=== PATIENT | male | born 1985 | race Caucasian/White ===

== ENCOUNTER → 2022-11-04 11:09 | Outpatient (BNVA) | payer BC, SELFPAY | PROVIDERS: PCP Nurse Practitioner Family; Visit Provider Nurse Practitioner Family ==

== ENCOUNTER 2023-01-06 12:07 | Day surgery (SDC) | payer BC, SELFPAY ==
[2023-01-02 09:24] VITALS: BMI 33.9
[2023-01-06] VITALS (7 sets, daily range): BP systolic 117–146; BP diastolic 59–97; PULSE 71–78; RESP 12–18; TEMP 36.1–36.3; O2SAT 95–98
--- NOTE | 2023-01-06 13:04 | PC.NURSE ---
report given to amy jang rn at this time.
[2023-01-06] MEDS: Lactated Ringers 1,000 ML 100 ML IVCONT (13:38)
--- NOTE | 2023-01-06 13:56 | P.CONAN_ITS ---
[facility] Active Problems Active Problems: All Active Problems (Updated 01/02/23 @ 09:21 by Tamiko Covington RN) Uncircumcised male (Acute) Foreign body (FB) in soft tissue (Acute) Balanitis (Acute) Past Medical History Medical History (Updated 01/02/23 @ 09:21 by Tamiko Covington RN) No pertinent past medical history Family History Family History Mother No problems noted. Father Asthma Family history of problems with anesthesia: No Surgical History Surgical History S/P tendon repair History of Problems with Anesthesia: No Social History Social History Housing: Apartment Alcohol intake: current Alcohol intake frequency: a few times a month Patient Tobacco Use Status: Never used Tobacco Tobacco use type: Cigarette e-Cigarette/Vaping Use: Never Used Are you DNR?: No Advance Directives: No Advance Directives Information Provided: Yes Nutrition Risks: No Nutritional Risk service: No Current occupational status: employed (Currently out. ) Meds Allergies Allergy/AdvReac Type Severity Reaction Status Date / Time No Known Allergies Allergy Verified 11/04/22 13:02 Active Medications: Current Medications Lactated Ringer's (Lr) 1,000 mls @ 100 mls/hr IVCONT .Q10H CHELSIE Last Admin: 01/06/23 13:38 Dose: 100 mls/hr Home Medications Medication Instructions Recorded Confirmed Last Taken Type gabapentin 300 mg capsule 300 mg PO DAILY 10/15/22 01/02/23 Unknown History Exam Exam Date and Time: January 06, 2023 1356 Height,Weight and Vital Signs: Height 6 ft 2 in Weight 119.748 kg Last Vital Signs Temp 97.4 F 01/06/23 13:31 Pulse 71 01/06/23 13:31 Resp 18 01/06/23 13:31 BP 127/84 01/06/23 13:31 Pulse Ox 98 01/06/23 13:31 O2 Del Method Room Air 01/06/23 13:31 Airway Mallampati Class: II TM Dist: >3cm Neck ROM: Full Assessment and Plan Assessment Anesthesia Assessment: Anesthesia Plan Discussed and Chart Reviewed Final Anesthetic Review Family History of Problems with Anesthesia: No History of Problems with Anesthesia: No NPO: Yes ASA Class: II Final Preanesthetic Review: No Changes in Pt Med Stat, Meds/Allgs Chart Reviewed, Consent Obtained/Reviewed and Anes Risks/Benef Reviewed Patient Risk: Low Procedure Risk: Low Anesthetic Plan Anesthetic Plan: GA Disposition: Standard PACU
--- NOTE | 2023-01-06 14:52 | MHC.SHP ---
Pre-Procedural Eval Section A Date of Service: 01/06/23 The patient is an INPATIENT: No The History & Physical has been completed within 30 days and I have reviewed it.: Yes Section B Chief Complaint: Residual foreign body in soft tissue,Balanitis Details of Present Illness: plan for circumcision with removal of foreign body History of Previous Operations: No relevant previous surgery Allergies: Allergies Allergy/AdvReac Type Severity Reaction Status Date / Time No Known Allergies Allergy Verified 11/04/22 13:02 Review of Systems Sugical H&P ROS: Negative: Constitution, Cardiovascular, Respiratory, Neurological, Psychiatric, Hem-Onc, Allergic/Immunologic, Gastrointestinal, Genitourinary, Musculoskeletal, Integumentary, Endocrine and Eyes/Ears/Nose/Throat Plan Diagnosis/Plan: Unchanged I have reviewed the history and physical and performed a pertinent physical examination on my patient. No changes have occurred unless specified. Time Spent With Patient Time: Total time managing care of this patient today ____ minutes.
--- NOTE | 2023-01-24 12:45 | P.OP_ITS ---
Operative Note Operative Note Date of Service: 01/06/23 Narrative: PreOperative Diagnosis: Balanitis with foreign body in foreskin Post Operative Diagnosis: as above Procedure: Circumcision with foreign body removal Surgeon: Dr Soren Rajput Anesthesia: General Indications for procedure: Recurring balanitis in inability to withdrawal foreskin of penile glans. Risks and benefits including bleeding, scarring, need for revision surgery been discussed. Procedure: After informed consent was verified the patient was brought to the operating mahamed m and placed in a supine position. Anesthesia was administered per protocol. The patient was prepped and draped sterile fashion. Safety pause time-out was performed. Antibiotics have been given. Progress under the skin of foreskin The penis was examined and proximal incision marked that lay just proximal to the resting position of the penile sulcus. This was followed around the circumference of the penis. A penile ring block was performed using 1% lidocaine with no epinephrine. Approximately 8 cc. The proximal incision was developed with sharp blade running circumferentially around the penis. The skin was to give a 1 cm separation between the foreskin in the remaining penile shaft skin. The foreskin was withdrawn and the penile glans exposed. A a distal incision was made approximately 5 mm proximal to the penile sulcus. At the area of the frenulum care was taken to empty the penile frenulum intact. Using clamps the dorsal skin was elevated. Using Metzenbaum scissors the avascular plane was entered and proximal and distal incision were joined. The bridging skin was elevated and clamped. It was then divided using Bovie. The sleeve of tissue was then removed circumferentially around the penis using cautery in order to minimize bleeding. The shaft was then examined in any bleeding areas were controlled. More local anesthetic was injected into the plane beneath avascular plane to help with postprocedure pain management. The skin edges after they were appropriately examined low reapposed. A 3-0 chromic suture was placed at 12:00 o'clock and 06:00 o'clock positions. Interrupted 3-0 was then placed the 09:00 o'clock and 3 o'clock position. Each quadrant was then filled with 3 sutures using 4-0 chromic. At the completion of the procedure there was adequate hemostasis. The incision was washed and dried. Antibiotic cream was applied to the incision. A Mandy wrap was applied followed by a Coban dressing. Xeroform gauze had been used to cover antibiotic ointment. He tolerated the procedure well and was extubated in the room and transferred in stable condition to the recovery area. Progress was cleaned and given to patient. Pathology: Foreskin Drains: none
== END 2023-01-06 17:31 | disposition home or self-care (01) ==
PROVIDERS: PCP Internal Medicine; Visit Provider Urology
PROC: (CPT 54161; principal; 2023-01-06 14:20)
DX: N48.1 Balanitis (principal); M79.5 Residual foreign body in soft tissue
CPT/HCPCS: 54161; 88304; J0690; J1100; J1885; J2250; J2405; J2795; J3010

== ENCOUNTER → 2023-01-06 12:07 | Outpatient (BNV) | payer SELFPAY | PROVIDERS: PCP Internal Medicine; Visit Provider Urology | DX: N48.1 Balanitis (principal) | CPT/HCPCS: 54161 ==

== ENCOUNTER 2023-02-14 13:04 | Outpatient (AMB) | payer BC, SELFPAY ==
--- NOTE | 2023-02-14 13:17 | MHC.OFFVIS ---
Intake Intake Visit Reasons: circum/foreign removal Intake Note: Patient presents for follow up s/p circumcision/foreign removal Urology Medications: none Blood Thnner: none Field Technical Assistant Required: Yes Accompanied by: Self / Same As Patient Allergies No Known Allergies Allergy (Verified 02/14/23 13:22) HPI HPI Comments History of Present Illness Details Nicole is a pleasant Luxembourger-speaking male. He is a patient of Dr. Gutierrez. He is seen for the following urologic conditions - balanitis Post circumcision Good result Foreign body that had been located in penile shaft has been removed in well-healed ON LICENSE OF [facility] Medical History No pertinent past medical history Surgical History S/P tendon repair Family History Mother No problems noted. Father Asthma Social History Housing: Apartment Alcohol intake: current Alcohol intake frequency: a few times a month Patient Tobacco Use Status: Never used Tobacco Tobacco use type: Cigarette e-Cigarette/Vaping Use: Never Used service: No Current occupational status: employed (Currently out. ) Review of Systems Const Denies chills and Denies fever(s) Card Reports no additional complaints and Denies syncope Resp Denies cough GI Denies abdominal pain and Denies heartburn Reports as per HPI and Denies change in libido Neuro Denies syncope Psych Denies change in libido Endo Denies change in libido Physical Exam Const General: cooperative, healthy appearing, comfortable and no acute distress Orientation/consciousness: patient oriented x3 HEENT Face and sinus: Yes normal facial exam Mouth: moist mucous membranes Neck Neck: Yes normal visual inspection, Yes full ROM and Yes trachea midline Chest Chest palpation & inspection: normal inspection of the chest Resp Effort & Inspection: normal respiratory effort, able to speak in complete sentences and no respiratory distress GI Inspection: Yes normal to inspection Back/Spine/Pelvis Cervical Spine: normal cervical lordosis Thoracic/Lumbar Spine: thoracic and lumbar spine normal to inspection Skin General skin exam: no rashes or lesions noted Neuro General: patient oriented x3, gait normal, tone normal and moves all extremities Extrem General: Yes normal to inspection and Yes capillary refill normal Assessment & Plan Assessment & Plan (1) Balanitis: Code(s): N48.1 - Balanitis (2) Foreign body (FB) in soft tissue: Code(s): M79.5 - Residual foreign body in soft tissue Plan P.r.n. follow-up Patient Instructions: Imaging studies, laboratory and physical exam results were discussed and reviewed in detail. No major barriers to patient understanding were identified. An opportunity to ask questions regarding the treatment plan was provided. All questions were answered. The patient expressed understanding and agreement with the above treatment plan. The patient is aware they should contact our office by phone for worsening of their current condition or the appearance of new urologic symptoms. Compliance is encouraged with any medications and followup testing that is ordered. It is a privilege to participate in the urologic care of your patient. If you have any questions or concerns regarding treatment for the above conditions, or other urologic issues, please do not hesitate to contact me. The office telephone contact is [phone]. This note is constructed using voice recognition software. While every effort has been made to ensure accuracy marble chip terrazzo worker errors may have been included. Yours sincerely, Dr Soren Rajput MD, [facility] - Urology Providers of Expert, Compassionate Care for the Genitourinary System Coding Level of Care Code Global (71002) Diagnoses Balanitis N48.1 Foreign body (FB) in soft tissue M79.5
== END 2023-02-14 13:51 | disposition home or self-care (01) ==
PROVIDERS: PCP Nurse Practitioner Family; Visit Provider Urology
DX: N48.1 Balanitis (principal); M79.5 Residual foreign body in soft tissue
CPT/HCPCS: 99024

== ENCOUNTER → 2023-02-14 13:04 | Outpatient (BNVA) | payer BC, SELFPAY | PROVIDERS: PCP Nurse Practitioner Family; Visit Provider Urology ==

== ENCOUNTER 2023-10-21 10:08 | Outpatient (AMB) | payer OTHER, SELFPAY ==
--- NOTE | 2023-10-21 10:24 | MHC.PC.OV ---
Vital Signs 10/21/23 10:27 Height 6 ft 2 in Weight 270 lb 8 oz BMI 34.7 BP 110/78 Blood Pressure Location Lt brachial Position Sitting Pulse 77 Pulse Source Pulse Oximeter Pulse Oximetry (%) 94 Oxygen Delivery Method Room Air Intake Visit Reasons: PE Intake Note: Patient is here today for a physical. Zipper Setter Chainstitch Required: Yes Zipper Setter Chainstitch Language: Pasta Press Operator Name: Paresh ([id number]) Information Interpreted: non-clinical & clinical Coin Purse Framer: Not Required per policy Accompanied by: Self / Same As Patient Allergies No Known Allergies Allergy (Verified 10/21/23 13:04) Medication List - Last Reconciled 10/21/23 by Sriram Castellanos MD No Known Home Meds Tobacco use date assessed: 10/21/23 Dental Screening Dental Screen Date: 10/21/23 Did you have a dental visit in the last 12 months?: No Did you have a dental problem in the last 6 months where you did not have access to dental care?: No Was dental information given to patient?: No HPI PE HPI Details 38-year-old male presents to the office requesting an annual physical. PFSH Surgical History History of ankle surgery S/P tendon repair Family History Mother No problems noted. Father Asthma Social History Housing: Apartment Alcohol intake: current Alcohol intake frequency: does not drink Patient Tobacco Use Status: Never used Tobacco Tobacco use type: Cigarette e-Cigarette/Vaping Use: Never Used Second Hand Smoke Exposure: No service: No Current occupational status: employed (Currently out. ) Cognitive needs: No Hearing needs: No Vision needs: No Questionnaire PHQ-9 Over the last 2 weeks, how often have you been bothered by any of the following problems? 1. Little interest or pleasure in doing things: not at all 2. Feeling down, depressed, or hopeless: not at all 3. Trouble falling or staying asleep, or sleeping too much: not at all 4. Feeling tired or having little energy: not at all 5. Poor appetite or overeating: not at all 6. Feeling bad about yourself - or that you are a failure or have let yourself or your family down: not at all 7. Trouble concentrating on things, such as reading the newspaper or watching television: not at all 8. Moving or speaking so slowly that other people could have noticed. Or the opposite - being so fidgety or restless that you have been moving around a lot more than usual: not at all 9. Thoughts that you would be better off or of hurting yourself in some way: not at all Total score: 0 Depression Screening Interpretation: Negative Depression Screening Done: Yes Source: Developed by Drs. Casper Almeida, Fe Bustamante, Wilman Zamora and colleagues, with an educational ruth from [employer] Thrive Questionnaire Date Thrive assessed: 10/21/23 I am a: Patient What is your living situation today?: I have a steady place to live Within the past 12 months, did the food you bought not last and you didn't have the money to get more?: Never true Within the past 12 months, did you worry whether your food would run out before you got money to buy more?: Never true Do you have trouble paying for medicines?: No Do you have trouble getting transportation to medical appointments?: No Do you have trouble paying your heating and electricity bill?: No Do you have trouble taking care of your child, family member or friend?: No Do you have trouble with day-to-day activities such as bathing, preparing meals, shopping, managing finances, etc.?: No Are you currently unemployed and looking for a job?: No Are you interested in more education?: No Currently or been in a relationship where the following occur: no concerns reported THRIVE Score: 0 AUDIT C Alcohol Use Questionnaire (AUDIT-C) 1. How often do you have a drink containing alcohol?: Never 2. How many drinks containing alcohol do you have on a typical day when you are drinking?: 1 or 2 Total Score: 0 KIRAN-7 AMB Questionnaire KIRAN-7 Date KIRAN - 7 assessed: 10/21/23 Feeling nervous, anxious, or on edge: 0 = Not at all Not being able to stop or control worryin = Not at all Worrying too much about different things: 0 = Not at all Trouble relaxin = Not at all Being so restless that it is hard to sit still: 0 = Not at all Becoming easily annoyed or irritable: 0 = Not at all Feeling afraid as if something awful might happen: 0 = Not at all Total KIRAN-7 score (0-4 normal; 5-9 mild; 10-14 moderate; 15-21 severe): 0 Source: Developed by Drs. Casper Almeida, Fe Bustamante, Wilman Zamora and colleagues, with an educational ruth from [employer]. Physical exam (Primary Care) Vital Signs: Last Vital Signs Pulse 77 10/21/23 10:27 BP 110/78 10/21/23 10:27 Pulse Ox 94 10/21/23 10:27 Oxygen Delivery Method Room Air 10/21/23 10:27 Care Plan Goal for BP management: Blood pressure is in range. Continue current medications BMI result Body Mass Index 34.7 BMI Assessment/Plan discussion: High (Patient is very muscular. 1 lb per week weight loss suggested.) BMI High, discussed plan: lifestyle, weight reduction, dietary and physical activity Tobacco/Smoking Status: Tobacco use Status Tobacco use date assessed 10/21/23 10/21/23 10:37 Patient Tobacco Use Status Never used Tobacco 10/21/23 10:35 Tobacco use type Cigarette 10/21/23 10:35 e-Cigarette/Vaping Use Never Used 10/21/23 10:35 PHQ-9: PHQ-9 Score PHQ-9: Total score 0 10/21/23 10:37 Depression Screening Interpretation: Negative Thrive Assessment: Date of Thrive Assessment Date Thrive assessed 10/21/23 10/21/23 10:37 Currently or been in a relationship where the following occur: no concerns reported Const General: cooperative and healthy appearing Nutritional Appearance: well nourished Orientation/consciousness: patient oriented x3 Limitations: no limitations HENMT Head: Yes normal to inspection Eyes General: appearance normal, both eyes and all related structures Neck Neck: Yes normal visual inspection Chest Chest palpation & inspection: normal palpation of entire chest wall Resp Effort & Inspection: normal respiratory effort Neuro General: patient oriented x3 Assessment and Plan Assessment & Plan (1) Annual physical exam: Code(s): Z00.00 - Encounter for general adult medical examination without abnormal findings Plan: Blood work ordered. Will call with results of the blood work. Orders: Orders Complete Blood Count no Diff Today E78.5 - Hyperlipidemia, unspecified Basic Metabolic Panel Today E78.5 - Hyperlipidemia, unspecified Liver Panel Today E78.5 - Hyperlipidemia, unspecified Lipid Panel Today E78.5 - Hyperlipidemia, unspecified Thyroid Stimulating Hormone Today E78.5 - Hyperlipidemia, unspecified UA and rflx microscopic Today E78.5 - Hyperlipidemia, unspecified Coding Level of Care Code Est Pt Prev Care 40-64y([id number]) Diagnoses Annual physical exam Z00.00
[2023-10-21 10:27] VITALS: BP 110/78; PULSE 77; O2SAT 94; BMI 34.7
== END 2023-10-21 13:28 | disposition home or self-care (01) ==
PROVIDERS: PCP Nurse Practitioner Family; Visit Provider Internal Medicine
DX: Z00.00 Encounter for general adult medical examination without abnormal findings (principal)
CPT/HCPCS: 99396

== ENCOUNTER 2023-10-21 11:05 | Outpatient (REF) | payer OTHER, SELFPAY ==
[2023-10-21 11:49] LABS: Appearance Urine Clear; Color Urine Yellow; Glucose Urine UA Negative (Negative); Leukocyte Esterase Urine Negative (Negative); Nitrite Urine Negative (Negative); PH 6.5 (5.0-9.0); Specific Gravity - Urine 1.025 (1.005-1.025); Urine Blood Negative (Negative); Urine Ketones Trace mg/dL (Negative); Urine Protein Negative (Neg-Trace)
[2023-10-21 11:50] LABS: Hematocrit 46.8 % (42.0-52.0); Mean Corpuscular HGB Conc 34.2 g/dl (31.0-36.0); Mean Corpuscular Hemoglobin 30.4 pg (27.0-33.0); Platelet Count 260 X10*3/uL (160-400); Red Blood Count 5.26 X10*6/uL (4.60-5.80); White Blood Count 6.6 X10*3/uL (4.8-10.8)
[2023-10-21 12:48] LABS: Alanine Aminotransferase 32 U/L (0-40); Albumin Level 4.2 g/dL (3.5-5.0); Alkaline Phosphatase 71 U/L (39-117); Anion Gap 15 (12-20); Aspartate Amino Transferase 19 U/L (5-37); Bilirubin Direct 0.2 mg/dL (0.0-0.5); Bilirubin Total 0.7 mg/dL (0.0-1.0); Blood Urea Nitrogen 13 mg/dL (9-16); Calcium 9.7 mg/dL (8.4-10.2); Carbon Dioxide 23 mmol/L (22-29); Chloride 106 mmol/L (96-108); Cholesterol 194 mg/dL (<200); Estimated Glomerular Filt Rate > 60; Glucose Random 97 mg/dL (60-115); HDL Cholesterol 41 mg/dL (>40); LDL Cholesterol Calculated 135 mg/dL (<100); Sodium 140 mmol/L (135-145); Thyroid Stimulating Hormone 1.52 uIU/mL (0.32-4.0); Total Protein 6.8 g/dL (6.5-8.0); Triglycerides 92 mg/dL (<150)
== END 2023-10-21 11:06 | disposition home or self-care (01) ==
LOC: HO.LAB 11:05
PROVIDERS: PCP Internal Medicine; Visit Provider Internal Medicine
DX: E78.5 Hyperlipidemia, unspecified (principal)
CPT/HCPCS: 36415; 80048; 80061; 80076; 81003; 84443; 85027

== ENCOUNTER 2024-05-28 11:31 | Emergency (ER) | payer OTHER, SELFPAY ==
--- NOTE | ~2024-05-28 | XR_ITS ---
EXAMINATION: XR SHOULDER, LEFT CLINICAL INFORMATION: pain, injury COMPARISON: None available. TECHNIQUE: AP external rotation, Grashey, scapular Y, and axillary views of the left shoulder. FINDINGS: Normal bone mineralization. No fracture, dislocation, or suspicious bone lesion. Glenohumeral joint appears normal. AC joint appears normal. Tiny subacromial spur without narrowing of the subacromial space. Neutral lateral acromion. Remainder the bony and soft tissue structures appear normal. XR/XR shoulder LT min 2V IMPRESSION: No acute findings left shoulder. Electronically signed by: Chavo Daniel MD 05/28/2024 01:30 PM EST
[2024-05-28 11:36] VITALS: BP 136/85; PULSE 77; RESP 18; TEMP 36.6; O2SAT 99; BMI 32.7
--- NOTE | 2024-05-28 11:36 | ED.GENADULT ---
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 clinical biochemical geneticist) Mode of arrival: ambulatory Limitations: language barrier (all interactions with this patient were facilitated with an [facility] clinical biochemical geneticist) History of Present Illness ED Provider: Lila Gunn PA-C HPI narrative: Patient is a 39 year old assigned male at with no reported medical history presenting to the emergency department today with left shoulder pain. Patient states that 2 weeks ago he injured his left shoulder at work moving a heavy object. Patient states that he tried to go to work connection first but they wouldn't see him. Patient denies any dizziness, lightheadedness, abdominal pain, nausea, vomiting, fever, chills, blurry vision, double vision, loss of vision, chest pain, difficulty breathing, shortness of breath, back pain, night sweats, pain with urination, increased urinary frequency, increased urinary urgency, blood in his urine or stool, syncope or a near syncopal episode, bowel incontinence, bladder incontinence, or any other complaints at this time. Onset (ago): week(s) (2) Location: left and upper extremity Relieving factors: none Exacerbating factors: none Associated symptoms: denies other symptoms Treatments prior to arrival: none Related Data Home Medications ?Medication ?Instructions ?Recorded ?Confirmed No Known Home Meds 10/21/23 10/21/23 Allergies Allergy/AdvReac Type Severity Reaction Status Date / Time No Known Allergies Allergy Verified 05/28/24 11:38 Review of Systems Constitutional: Constitutional: Reports no additional constitutional complaints, Denies chills, Denies fever(s) and Denies night sweats Eyes: Eyes: Reports no additional eye complaints, Denies blurry vision, Denies change in vision, Denies diplopia, Denies eye discharge, Denies loss of vision and Denies eye pain ENT: Denies dizziness Cardiovascular: Cardiovascular: Reports no additional cardiovascular complaints, Denies chest pain, Denies lightheadedness, Denies Loss of Consciousness and Denies dyspnea Respiratory: Respiratory: Reports no additional respiratory complaints and Denies dyspnea Gastrointestinal: Gastrointestinal: Reports no additional gastrointestinal complaints, Denies abdominal pain, Denies melena, Denies hematochezia, Denies change in bowel habits and Denies change in stool character Genitourinary: Genitourinary: Reports no additional male genitourinary complaints, Denies hematuria, Denies oliguria, Denies difficulty urinating, Denies dysuria, Denies urinary frequency, Denies urinary hesitancy, Denies urinary incontinence and Denies urinary urgency Musculoskeletal: Musculoskeletal: Reports no additional musculoskeletal complaints, Denies numbness and Denies tingling Comments: left shoulder pain Neurologic: Denies dizziness, Denies loss of vision, Denies numbness and Denies tingling Psychiatric: Psychiatric: Reports no additional psychiatric complaints Endocrine: Endocrine: Reports no additional endocrine complaints Hematologic/Lymphatic: Hematologic/Lymphatic: Reports no additional hematologic/lymphatic complaints Allergic/Immunologic: Allergic/Immunologic: Reports no additional allergic/immunologic complaints PMFSH Past Medical History Attestation statement: The following information was validated with the patient. Source: old records reviewed and nursing notes reviewed Surgical History History of ankle surgery S/P tendon repair Family History Family History Mother No problems noted. Father Asthma Social History Social History Housing: Apartment Alcohol intake: current Alcohol intake frequency: does not drink Patient Tobacco Use Status: Never used Tobacco Tobacco use type: Cigarette e-Cigarette/Vaping Use: Never Used Second Hand Smoke Exposure: No Advance Directives: No Advance Directives Information Provided: Yes Do you have a plan to hurt others: No Plan service: No Current occupational status: employed (Currently out. ) Cognitive needs: No Hearing needs: No Vision needs: No Physical Exam ED Vital Signs: Vital Signs - 24 hr 05/28/24 11:36 05/28/24 14:37 Temperature 98 F 98 F Pulse Rate 77 77 Respiratory Rate 18 18 Blood Pressure 136/85 136/85 Pulse Oximetry 99 99 Oxygen Delivery Method Room Air Room Air BMI result Body Mass Index 32.7 Const General: cooperative, no acute distress, alert and awake Nutritional Appearance: well nourished Orientation/consciousness: patient oriented x3 Limitations: no limitations HENMT Head: Yes normal to inspection and Yes atraumatic Ears: hearing grossly normal bilaterally and external ears normal General nose exam: Normal external nose present, no nasal discharge noted and no epistaxis Face and sinus: Yes normal facial exam, No abrasion and No laceration Mouth: Normal oral and palatal mucosa present, no drooling and no muffled voice Eyes General: appearance normal, both eyes and all related structures Periorbital: periorbital findings normal Eyelids: Yes eyelids normal Conjunctivae: conjunctivae normal Pupils: Equal, round and reactive pupils present EOM: EOMs intact bilaterally Neck Neck: Yes normal visual inspection, Yes full ROM and Yes no lymphadenopathy Chest Chest palpation & inspection: normal inspection of the chest Resp Effort & Inspection: normal respiratory effort and able to speak in complete sentences GI Inspection: Yes normal to inspection Neuro General: patient oriented x3 and moves all extremities Cranial nerves: Yes Equal, round and reactive pupils present Cognition (Neuro): normal cognition Extrem Other: limited ROM of the left shoulder secondary to pain General: Yes normal to inspection and Yes capillary refill normal Psych Appearance: grossly normal Mental Status: mental status grossly normal Affect: normal affect Attitude: cooperative Thought process: Normal thought process present Thought content: Normal thought content present Insight: Good insight present (Psych) Course Course Course Narrative: RME performed by Lila Gunn PA-C. Patient is a 39 year old assigned male at presenting to the emergency department with left shoulder pain. Patient states he was manipulating large concrete slabs and somehow tweaked his left shoulder. Detailed physical exam and review of systems are deferred to the portable sawyer. Imaging ordered. Patient placed back in the waiting room pending room availability and results. Medical Decision Making Medical Decision Making MDM Narrative: Patient is a 39 year old assigned male at with no reported medical history presenting to the emergency department today with left shoulder pain. Patient's physical exam was as noted in the physical exam portion of this note. Patient's left shoulder x-ray showed no acute process. I explained my physical exam findings as well as all test results to the patient. I answered all questions asked by the patient. Patient's clinical presentation is most consistent with a left rotator cuff injury. I stressed the importance of the patient taking his medication as directed (either prescribed or as the over the counter packaging recommends). I stressed the importance of the patient following up with his primary care provider, an orthopedic provider, and work connection. I stressed the importance of the patient returning to the emergency department immediately if his symptoms were to worsen or if he were to develop any dizziness, shortness of breath, difficulty breathing, chest pain, blurry vision, loss of vision, nausea, vomiting, abdominal pain, fever, chills, back pain, or any other complaints. Patient verbalized agreement and understanding with this treatment plan and discharge. Differential Diagnosis Differential Diagnoses: The differential diagnosis associated with the presentation includes Rotator cuff injury Shoulder pain Shoulder injury Admission/Observation Consideration of admission/observation: Escalation of care including admission/observation considered Patient would have been admitted to the hospital had his work up had any findings where hospital admission was appropriate and his clinical presentation warranted hospital admission. Independent Interpretation I performed an independent interpretation of an: Plain X-Ray Interpretation: My interpretation is in agreement with the radiologist's impression of this imaging study. EXAMINATION: XR SHOULDER, LEFT CLINICAL INFORMATION: pain, injury COMPARISON: None available. TECHNIQUE: AP external rotation, Grashey, scapular Y, and axillary views of the left shoulder. FINDINGS: Normal bone mineralization. No fracture, dislocation, or suspicious bone lesion. Glenohumeral joint appears normal. AC joint appears normal. Tiny subacromial spur without narrowing of the subacromial space. Neutral lateral acromion. Remainder the bony and soft tissue structures appear normal. XR/XR shoulder LT min 2V IMPRESSION: No acute findings left shoulder. Electronically signed by: Chavo Daniel MD 05/28/2024 01:30 PM EST Dictated By: Chavo Daniel MD Signed By: Electronically signed by Chavo Daniel MD 05/28/24 5180 Radiology Impression Discussion of test interpretation with radiology: I have reviewed the radiologist's reading. Discharge Plan Discharge Clinical Impression: Rotator cuff injury Patient Disposition: Home, Self-Care Instructions: Rotator Cuff Injury (ED), Rotator Cuff Injury Exercises (DC) Additional Instructions: Follow up with your primary care provider, the orthopedic provider, and work connection. Return to the emergency department immediately if your symptoms worsen or if you develop any dizziness, shortness of breath, difficulty breathing, chest pain, blurry vision, loss of vision, nausea, vomiting, abdominal pain, fever, chills, back pain, or any other complaints. Cameron un seguimiento con pineda m?dico de atenci?n primaria, el traumat?logo y la conexi?n laboral. Vuelva inmediatamente al servicio de urgencias si lillian s?ntomas empeoran o si presenta mareos, falta de aliento, dificultad para respirar, dolor tor?cico, visi?n borrosa, p?rdida de visi?n, n?useas, v?mitos, dolor abdominal, fiebre, escalofr?os, dolor de espalda o cualquier otra molestia. Prescriptions: No Action No Known Home Meds Referrals: [facility] Family Medicine [Provider Group] (Call to establish and follow up with a primary care provider. If you already have a primary care provider, please follow up with them. Llame para establecer y hacer un seguimiento con un proveedor de atenci?n primaria. Si ya tiene un proveedor de atenci?n primaria, cameron un seguimiento con ?l.) [facility] [Provider Group] (Call to establish and follow up with a primary care provider. If you already have a primary care provider, please follow up with them. Llame para establecer y hacer un seguimiento con un proveedor de atenci?n primaria. Si ya tiene un proveedor de atenci?n primaria, cameron un seguimiento con ?l.) [facility] Primary Care,[facility] [Provider Group] (Call to establish and follow up with a primary care provider. If you already have a primary care provider, please follow up with them. Llame para establecer y hacer un seguimiento con un proveedor de atenci?n primaria. Si ya tiene un proveedor de atenci?n primaria, cameron un seguimiento con ?l.) [facility] Orth[facility] Surgeons [Provider Group] (call to establish and follow up with an orthopedic provider. llamar para establecer y hacer un seguimiento con un proveedor de ortopedia.) [facility] [Provider Group] (Call to establish and follow up with the work connection. Llame para establecer y hacer un seguimiento de la conexi?n laboral.) Stand Alone Forms: Work/School Release Interventions: ED Discharge Assessment Last Done: 05/28/24 14:37 Discharge Date/Time: 05/28/24 14:38 Print Language: Greenlandic
[2024-05-28 14:37] VITALS: BP 136/85; PULSE 77; RESP 18; TEMP 36.6; O2SAT 99
== END 2024-05-28 14:38 | disposition home or self-care (01) ==
PROVIDERS: Emergency Provider Emergency Medicine
DX: S46.002A Unspecified injury of muscle(s) and tendon(s) of the rotator cuff of left shoulder, initial encounter (principal); M25.512 Pain in left shoulder; X50.9XXA Other and unspecified overexertion or strenuous movements or postures, initial encounter; Y93.89 Activity, other specified; Y92.89 Other specified places as the place of occurrence of the external cause; Y99.0 Civilian activity done for income or pay
CPT/HCPCS: 73030; 99282; 99283

== ENCOUNTER → 2024-05-28 11:37 | Outpatient (BNV) | payer OTHER, SELFPAY | PROVIDERS: Emergency Provider Emergency Medicine; Visit Provider Radiology Diagnostic Radiology | DX: M25.512 Pain in left shoulder (principal) | CPT/HCPCS: 73030 ==

== ENCOUNTER 2024-06-05 10:00 | Emergency (ER) | payer OTHER, SELFPAY ==
[2024-06-05 10:45] VITALS: BP 145/89; PULSE 80; RESP 16; TEMP 36.6; O2SAT 98; BMI 33.6
--- NOTE | 2024-06-05 11:31 | ED.EXTPRO ---
HPI - Extremity Problem General Chief complaint: Extremity Injury, Upper Stated complaint: l shoulder pain Time Seen by Provider: 06/05/24 10:58 Source: patient and RN notes reviewed Mode of arrival: ambulatory Limitations: no limitations History of Present Illness ED Provider: Mary Anne Dallas PA-C HPI Narrative: This is a 39-year-old male, with no known medical problems, who presents emergency department with complaints of left shoulder pain since May 24. Patient states that while he was at work on the , he lifted a heavy piece of popping and immediately felt pain in his left shoulder. He states that he was seen here on May 28, had an x-ray performed which was normal, and was advised to follow-up with the legal recovery specialist. He has been taking ibuprofen for pain. He states that he called the legal recovery specialist however they are awaiting paperwork from his work prior to setting up the appointment. Patient states that he has had problems with his workman's comp paperwork and therefore it has not been processed. He states that he is unable to sleep secondary to the pain. Denies any new trauma or injury. No chest pain or shortness for breath. Pain worsens with movement. No other complaints or concerns at this time. MD Complaint: extremity pain Pain Consistency: constant Location: left and upper extremity Quality: aching Radiation: none Relieving factors: medication and rest Exacerbating factors: range of motion and palpation Related Data Previous Rx's ?Medication ?Instructions ?Recorded acetaminophen 500 mg tablet 1,000 mg (2 x 500 mg) PO Q8H PRN 06/05/24 (Tylenol Extra Strength) pain #30 tabs ibuprofen 600 mg tablet 600 mg PO Q6H PRN pain #30 tabs 06/05/24 oxycodone 5 mg tablet 5 mg PO Q6H PRN pain #5 tabs 06/05/24 Allergies Allergy/AdvReac Type Severity Reaction Status Date / Time No Known Allergies Allergy Verified 06/05/24 10:46 Review of Systems Review of Systems: Yes all other systems are reviewed and are negative Constitutional: Constitutional: Reports as per HPI [facility] Past Medical History Surgical History History of ankle surgery S/P tendon repair Family History Family History Mother No problems noted. Father Asthma Social History Social History Housing: Apartment Alcohol intake: current Alcohol intake frequency: does not drink Patient Tobacco Use Status: Never used Tobacco Tobacco use type: Cigarette e-Cigarette/Vaping Use: Never Used Second Hand Smoke Exposure: No Advance Directives: No Advance Directives Information Provided: No Do you have a plan to hurt others: No Plan service: No Current occupational status: employed (Currently out. ) Cognitive needs: No Hearing needs: No Vision needs: No Physical Exam Vital Signs: Vital Signs: Last Vital Signs Temp 97.9 F 06/05/24 12:33 Pulse 80 06/05/24 12:33 Resp 16 06/05/24 12:33 BP 145/89 H 06/05/24 12:33 Pulse Ox 98 06/05/24 12:33 O2 Del Method Room Air 06/05/24 12:33 BMI result Body Mass Index 33.6 Const: General: cooperative, comfortable and no acute distress Orientation/consciousness: patient oriented x3 Limitations: no limitations HEENT: Head: Yes normal to inspection, Yes normocephalic and Yes atraumatic Ears: hearing grossly normal bilaterally General nose exam: Normal external nose present Face and sinus: Yes normal facial exam Mouth: Normal oral and palatal mucosa present, oropharynx normal and moist mucous membranes Throat: Yes posterior oropharynx normal Eyes: General: appearance normal, both eyes and all related structures Eyelids: Yes eyelids normal Conjunctivae: conjunctivae normal Sclerae: sclerae normal Pupils: Equal, round and reactive pupils present EOM: EOMs intact bilaterally Neck: Neck: Yes normal visual inspection, Yes full ROM and Yes no lymphadenopathy Lymphatic: no lymphadenopathy noted Chest: Chest palpation & inspection: normal inspection of the chest Resp: Effort & Inspection: normal respiratory effort and able to speak in complete sentences Auscultation: clear to auscultation bilaterally, no crackles, no rales, no rhonchi and no wheezes Cardio: Rate: regular rate Rhythm: regular rhythm Heart sounds: S1 normal heart sound present and S2 normal heart sound present GI: Inspection: Yes normal to inspection Skin: General skin exam: no rashes or lesions noted Trauma: no lacerations or abrasions Wounds: no wounds Neuro: General: patient oriented x3 and moves all extremities Cranial nerves: Yes Equal, round and reactive pupils present Extrem: Other: Left shoulder, with no obvious bony deformity or swelling. He has tenderness palpation along the left bicipital groove, pain with range of motion. Negative drop-arm test, pain with lift-off test. Positive empty can test. Strong radial pulse. No tenderness palpation along the left clavicle. Left arm, with ability to raise arm to about 110? forward, and abduction to about 110?, however with pain elicited. General: Yes normal to inspection Right upper extremity: normal to inspection Left upper extremity: normal to inspection Right lower extremity: normal to inspection Left lower extremity: normal to inspection Medications Administered Discontinued Medications Generic Name Dose Route Start Last Admin Trade Name Freq PRN Reason Stop Dose Admin Ketorolac Tromethamine 30 mg 06/05/24 11:54 06/05/24 12:01 Ketorolac Tromethamine 30 Mg/Ml Vial IM 06/05/24 11:55 30 mg ONCE ONE Administration Medical Decision Making Medical Decision Making MDM Narrative: This is a 39-year-old male, with no known medical problems, who presents emergency department with ongoing left shoulder pain. On arrival, patient mildly hypertensive at 145/89, all other vital signs within normal limits. He is speaking full sentences under no acute distress. Patient with pain especially with range of motion, he does have pain along the bicipital groove, and AC joint region. Concerning for possible rotator cuff like injury. X-ray that was performed on 1226 revealed no acute findings. He has had no new injury since this visit on May 28. Repeat x-rays was deferred. Discussed with patient in the importance of following up with the legal recovery specialist. He states that he has been attempting to do so however has had issues with workman's comp paperwork, and his employer. He has been taking [id number] ibuprofen and Tylenol with minimal relief. He states he is unable to sleep at night. Advised patient to continue taking ibuprofen and Tylenol. We will give him short course of oxycodone, advised only take this for severe pain only. Advised that this is a short-term medication, and can not be refilled from the emergency room. Warned about addiction, adverse side effects from narcotics therefore urged the importance to only take as needed for severe pain only. He understands this. He will follow-up with the legal recovery specialist on Friday. Will medicate with Toradol in the department today, which provided him with some relief. Given strict return precautions. Patient stable for discharge. Differential Diagnosis Differential Diagnoses: The differential diagnosis associated with the presentation includes Rotator cuff injury, tendonitis, fracture, sprain, strain Radiology Impression Discussion of test interpretation with radiology: I have reviewed the radiologist's reading. Radiologist Impression: I reviewed the radiology report from 05/28, revealing no acute findings of the left shoulder. Deferred repeat as patient has had no new injury Discharge Plan Discharge Clinical Impression: Pain in left shoulder Patient Disposition: Home, Self-Care Instructions: Shoulder Pain (ED) Additional Instructions: You were seen in the emergency department due to left shoulder pain. You previously had an x-ray performed at your last ER visit which did not show any bony abnormalities. You have exam findings concerning for possible rotator cuff like injury. It is very important that you follow-up with the legal recovery specialist, call on Friday to make an appointment. Continue taking ibuprofen and or Tylenol as needed for pain and symptoms. If you need more pain relief after taking Tylenol and Motrin, you may take the oxycodone that was prescribed to you. Please take this sparingly, and only use for severe pain only. Please be advised that oxycodone is a strong narcotic pain medication that can become addictive therefore it is very important that you use this sparingly. We can not refill this medication from the emergency department. Please be advised that this can cause drowsiness, do not drink alcohol, or operate any heavy machinery while taking this medication. Rest, ice the left shoulder as this can also provide pain relief. Call to establish and follow up with an orthopedic provider. Llame para establecer y hacer seguimiento con un proveedor de ortopedia. Follow up with your primary care provider. Return to the emergency department immediately?if your symptoms?were to worsen or if you were to develop any shortness of breath, difficulty breathing, chest pain, dizziness, lightheadedness, back pain, abdominal pain, fever, chills, or any other symptoms. Alison?seguimiento?con pineda m?dico de atenci?n primaria. Acuda inmediatamente al servicio de urgencias si lillian s?ntomas empeoran o si presenta falta de aliento, dificultad para respirar, dolor tor?cico, mareos, aturdimiento, dolor de espalda, dolor abdominal, fiebre, escalofr?os o cualquier otro s?ntoma. Prescriptions: New ibuprofen 600 mg tablet 600 mg PO Q6H PRN (Reason: pain) Qty: 30 0RF acetaminophen [Tylenol Extra Strength] 500 mg tablet 1,000 mg PO Q8H PRN (Reason: pain) Qty: 30 0RF oxycodone 5 mg tablet 5 mg PO Q6H PRN (Reason: pain) Qty: 5 0RF Rx Instructions: Partial Fill upon patient request. [place] [facility] [Provider Group] Stand Alone Forms: Work/School Release Interventions: ED Discharge Assessment Last Done: 06/05/24 12:33 Discharge Date/Time: 06/05/24 12:37 Print Language: Indonesian
[2024-06-05] MEDS: Ketorolac Tromethamine 30 MG/ML VIAL IM (12:01)
[2024-06-05 12:33] VITALS: BP 145/89; PULSE 80; RESP 16; TEMP 36.6; O2SAT 98
== END 2024-06-05 12:37 | disposition home or self-care (01) ==
PROVIDERS: Emergency Provider Emergency Medicine
DX: Z04.2 Encounter for examination and observation following work accident (principal); M25.512 Pain in left shoulder
CPT/HCPCS: 96372; 99283; 99284; J1885

== ENCOUNTER 2024-06-15 15:00 | Outpatient (AMB) | payer OTHER, SELFPAY ==
--- NOTE | 2024-06-15 15:07 | A.OFFVIS_ITS ---
Vital Signs 06/15/24 15:14 Height 6 ft 1 in Weight 255 lb BMI 33.6 Handedness Right Intake Visit Reasons: New Pt - Left shoulder injury, 05/24/24 Intake Note: Jacky 39 year old right hand dominant male who presents today as a new patient for a evaluation of his left shoulder injury, 05/24/24. Patient reports he was lifting a heavy piece of paper tubing and heard a popping sound in his shoulder and immediately felt pain. Patient states that his pain is on the lateral aspect of the shoulder and it moves down to his bicep. He mentions that they gave him an injection of tramadol which gave him relief. Machine Load Clerk Services: Machine Load Clerk Present (Curtis ([id number])) Allergies No Known Allergies Allergy (Verified 06/15/24 15:12) HPI HPI New Pt - Left shoulder injury, 05/24/24: Details: Patient is a right-hand dominant 39-year-old male who presents to the office today for evaluation of left shoulder injury that occurred on 05/24/2024. He reports that he was lifting something heavy and heard a popping sensation from the left shoulder. He presented to the emergency department where they gave him an injection for inflammation. The sounds like Toradol. He denies any physical therapy or cortisone injection. [facility] Surgical History History of ankle surgery S/P tendon repair Family History Mother No problems noted. 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 No ecchymosis, erythema, or edema. Full shoulder ROM in all planes. Negative cross-body reach. Negative empty can. Negative drop arm. NVI. Office Procedures AMB Joint Injection/Aspiration Joint Injection/Aspiration Primary Site: left shoulder Prep: site was prepped using aseptic technique, ethochloride spray was applied and injection warnings given Injected: 80 mg of, DepoMedrol, with 8 mL of (2% plain lidocaine) and in the subcromial space Approach Used: posterolateral Procedure: The patient tolerated the procedure well, but had some pain with the injection and there was some relief with the local anesthesia Coding 28225 - Large joint Procedure code (CPT) selection complete Assessment & Plan Assessment & Plan (1) Painful arc syndrome of left shoulder: Code(s): M75.102 - Unspecified rotator cuff tear or rupture of left shoulder, not specified as traumatic Category: Medical Plan Patient is a right-hand dominant 39-year-old male who presents to the office today for evaluation of left shoulder injury that occurred on 05/24/2024. He reports that he was lifting something heavy and heard a popping sensation from the left shoulder. He presented to the emergency department where they gave him an injection for inflammation. The sounds like Toradol. He denies any physical therapy or cortisone injection. The patient was offered a cortisone injection in the left shoulder with 80 mg of DepoMedrol. The patient was explained the risks, benefits, and alternatives to receiving this injection. After receiving consent for the injection, the patient had the procedure done while in the office today. The patient tolerated the procedure well with no complications. I also discussed the role of physical therapy with the patient and he has elected to attend. He will follow up in 6 weeks, if his symptoms do not improve the next step would be to order an MRI. He will follow up in 6 weeks, sooner if needed. X-rays obtained on 05/28/2024 of the left shoulder were reviewed and negative for any acute fracture dislocation. Coding Level of Care Code New Pt Level 3 (25713) Diagnoses Painful arc syndrome of left shoulder M75.102 CPT Codes Coding - 16224 Large joint: 00089 - Large joint ([id number])
[2024-06-15 15:14] VITALS: BMI 33.6
== END 2024-06-15 16:04 | disposition home or self-care (01) ==
PROVIDERS: Visit Provider Physician Assistant
DX: M75.102 Unspecified rotator cuff tear or rupture of left shoulder, not specified as traumatic (principal)
CPT/HCPCS: 20610; 99203

== ENCOUNTER → 2024-06-15 15:00 | Outpatient (BNVA) | payer OTHER, SELFPAY | PROVIDERS: Visit Provider Physician Assistant | DX: M75.102 Unspecified rotator cuff tear or rupture of left shoulder, not specified as traumatic (principal) | CPT/HCPCS: 20610; 99202; J1010; J2003 ==

== ENCOUNTER 2024-07-27 13:10 | Outpatient (AMB) | payer OTHER, SELFPAY ==
--- NOTE | 2024-07-27 13:21 | MHC.OFFVIS ---
Vital Signs 07/27/24 13:31 Height 6 ft 1 in Weight 255 lb BMI 33.6 Intake Visit Reasons: OV - left shoulder injury, 05/24/24 Intake Note: Jacky 39 year old right hand dominant male who presents today for a follow up of his left shoulder injury, 05/24/24. Injection was given on 06/15/24. Patient reports he is doing well, states improvement in his pain ever since torodal injection. He denies any pain or discomfort today. Commissioned Sales Associate Required: Yes Commissioned Sales Associate Services: Commissioned Sales Associate Present Commissioned Sales Associate Name: Noelle ID#[id number], [id number] Allergies No Known Allergies Allergy (Verified 07/27/24 13:31) HPI HPI OV - left shoulder injury, 05/24/24: Details: Mr. Mich Galdamez this is a 39-year-old right-hand dominant male who presents to the office today for routine follow-up status post left shoulder cortisone injection performed on 06/15/2024. His initial date of injury was 05/24/2024 when he was at work lifting a heavy object and heard a popping sensation in the left shoulder. Since the injection he has had complete resolution of symptoms. He would like to return to work full-time regular duty. [facility] Surgical History History of ankle surgery S/P tendon repair Family History Mother No problems noted. 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 No ecchymosis, erythema, or edema. Full shoulder ROM in all planes. Negative cross-body reach. Negative empty can. Negative drop arm. NVI. Assessment & Plan Assessment & Plan (1) Painful arc syndrome of left shoulder: Code(s): M75.102 - Unspecified rotator cuff tear or rupture of left shoulder, not specified as traumatic Category: Medical Plan Mr. Mich Galdamez this is a 39-year-old right-hand dominant male who presents to the office today for routine follow-up status post left shoulder cortisone injection performed on 06/15/2024. His initial date of injury was 05/24/2024 when he was at work lifting a heavy object and heard a popping sensation in the left shoulder. Since the injection he has had complete resolution of symptoms. He would like to return to work full-time regular duty. While in the office today, patient reports that he is doing very well and his symptoms have completely concluded. I have provided him with a return to work note to return full-time regular duty. His follow up with me will be p.r.n., sooner if needed. Coding Level of Care Code Est Pt Level 3 (10400) Diagnoses Painful arc syndrome of left shoulder M75.102
[2024-07-27 13:31] VITALS: BMI 33.6
--- OUTSIDE RECORDS SUMMARY | 2024-07-27 16:07 | XMS_ITS | Data Portability ---
Author Organization MÓNICA Tinsley [employer] [facility], [address] Address [address] [place] [id number] Assessment No assessment recorded. Plan of Treatment Reminders Order Date Submit Date Provider Last Modified By Organization Details Last Modified Time Details Appointments None recorded. Lab None recorded. Referral None recorded. Procedures None recorded. Surgeries None recorded. Imaging None recorded. Medication Orders hydroxyzine HCl 10 mg tablet 2021 022 [facility] #[id number], [phone] [place], [address], 10:20:01 Patient TargetsNo targets recorded. Patient Instructions Encounter Date Encounter Id Patient Instructions Last Modified By Organization Details Last Modified Time 05/07/2022 [id number] anxiety and felix c coping education, dominican sghohestanibo Not available 05/07/2022 10:19:58 depression education, dominican sghohestanibo Not available 05/07/2022 10:19:58 Reason for Referral None Reported. Problems No Known Problems Procedures Surgical History Date Name Laterality Status Provider Name and Address Organization Details Recorded Time procedure on ankle completed MARA RICHIE [facility] 05/07/2022 09:52:11 Imaging Results None recorded. Procedure Notes None recorded. Medical Equipment None Reported. Allergies No known drug allergies Medications Name Sig Start Date Stop Date Status Note LastModified by Organization Details LastModified Time hydroxyzine HCl 10 mg tablet TOME MALINDA TABLETA CADA OCHO HORAS CUANDO SEA NECESARIO FOR 30 DAYS active Not Available Not Available No t Available Vitals Date Recorded Body height Body mass index (BMI) Body weight Oxygen saturation Oxygen saturation in Arterial blood by Pulse oximetry Heart rate Respiratory rate Body temperature Systolic blood pressure Diastolic blood pressure Provider Name and Address Organization Details Last Updated DateTime 2 187.96 cm 34.7 kg/m2 834352. 94 g 98 % 98 % 80 /min 18 /min 97.3 [degF] 135 mm[Hg] 83 mm[Hg] MARA RICHIE SALES - [facility] 09:51:36 Social History Question Answer Notes LastModified by Organizat ion Details LastModified Time Tobacco Smoking Status Never Smoker MÓNICA Lai - [facility] 05/07/2022 09:51:31 What Is Your Level Of Alcohol Consumption? None Information not available 05/07/2022 Have You Had Direct Contact, Or Contact During Intimacy, With Monkeypox Rash, Scabs, Or Body Fluids From A Person With Monkeypox? No Information not available 05/07/2022 Do You Use Any Illicit Or Recreational Drugs? No Information not available 05/07/2022 Have You Recently Traveled Abroad? No Information not available 05/07/2022 Do You Or Have You Ever Used Any Other Forms Of Tobacco Or Nicotine? No Information not available 05/07/2022 Sex: Unknown Functional Status None recorded. Mental Status None recorded. Family History Relationship Description Onset Age of this Age Resolved Age Notes LastModified by Organization Details LastModified Time Father No current problems or disability Not available 05/07 09:51:15 Mother No current problems or disability Not available 05/07 09:51:15 Medical History No medical history recorded. Past Encounters Encounter ID Performer Location Encounter Start Date Encounter Closed Date Diagnosis/Indication Diagnosis SNOMED-CT Code Diagnosis ICD10 Code Diagnosis Note [id number] [address] [place] [address] 05/06/2017 12:28:16 05/06/2017 13:02:26 [id number] MÓNICA BENITES [address] [place] [address] 05/07/2022 09:23:37 05/07/2022 10:26:30 Acute stress disorder 53449690 F43.0 Emotional upset 07514627 5 R45.89 Health Concerns Section Related Observation LastModified by Organization Detai ls LastModified Time None Recorded Concern Status LastModified by Organization Details LastModified Time None Recorded Advance Directives Directive None Recorded Payers Encounter Date Sequence Insurance Name Policy Number Policy [place] Covered Member ID [place] Member ID Guarantor Name 05/07/2022 1 [facility] ([facility]) Jacky Epps [id number] Jacky Epps Notes Date Note Type Note Provider Name and Address Organization Details Recorded Time 05/07/2022 text/html Anxiety / DepressionReported bypatient.Notes:Sandip macias is a 37 yo M here for evaluation of acute anxiety and depression episode onset 4 days ago. States his suddenly left him and went back to [place] without any notice. Notes they were fine emotionally, had no issues as far as he knew, were not fighting. The way she left was a shock for him. She has not been in contact with him. He feels abandoned. Was unable to work today, left to come to urgent care for evaluation. Denies SI and HI but feels very hopeless and sad. Notes difficulty sleeping. Is not a drug or alcohol abuser. [employer] Machine number: [id number] PAZ SOTELO-MÓNICA MURO JD [facility] [place], [id number], [place] - [facility] 05/07/2022 10:24:14
== END 2024-07-27 14:07 | disposition home or self-care (01) ==
PROVIDERS: Visit Provider Physician Assistant
DX: M75.102 Unspecified rotator cuff tear or rupture of left shoulder, not specified as traumatic (principal)
CPT/HCPCS: 99213

== ENCOUNTER → 2024-07-27 13:10 | Outpatient (BNVA) | payer OTHER, SELFPAY | PROVIDERS: Visit Provider Physician Assistant | DX: M75.102 Unspecified rotator cuff tear or rupture of left shoulder, not specified as traumatic (principal) | CPT/HCPCS: 99212 ==

== ENCOUNTER 2025-01-05 10:05 | Outpatient (AMB) | payer OTHER, SELFPAY ==
--- NOTE | 2025-01-05 10:23 | A.OFFPC_ITS ---
Vital Signs 01/05/25 10:25 Height 6 ft 1 in Weight 262 lb 6 oz BMI 34.6 BP 132/76 Blood Pressure Location Lt brachial Position Sitting Pulse 83 Pulse Source Pulse Oximeter Temp 97.3 F Temp Source Temporal Artery Scan Pulse Oximetry (%) 97 Oxygen Delivery Method Room Air Intake Visit Reasons: Annual Physical Intake Note: Patient is here today for a physical. Collection Systems Administrator Required: Yes Collection Systems Administrator Language: Lead Producer Name: Johnny ([id number]) Information Interpreted: non-clinical & clinical Vamp Marker: Not Required per policy Accompanied by: Self / Same As Patient Allergies No Known Allergies Allergy (Verified 01/05/25 11:02) Medication List - Last Reconciled 01/05/25 by Sriram Castellanos MD No Known Home Meds Tobacco use date assessed: 01/05/25 Dental Screening Dental Screen Date: 01/05/25 Did you have a dental visit in the last 12 months?: No Did you have a dental problem in the last 6 months where you did not have access to dental care?: No Was dental information given to patient?: No HPI Annual Physical HPI Details 39-year-old male presents to the office requesting an annual physical. Collection Systems Administrator using the iPad was utilized. In addition, patient is complaining of cramping in his hands. Symptoms occur when he is exercising or holding heavy objects in his hand. [facility] Surgical History History of ankle surgery S/P tendon repair Family History Mother No problems noted. 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 1. Little interest or pleasure in doing things: not at all 2. Feeling down, depressed, or hopeless: not at all 3. Trouble falling or staying asleep, or sleeping too much: not at all 4. Feeling tired or having little energy: not at all 5. Poor appetite or overeating: not at all 6. Feeling bad about yourself - or that you are a failure or have let yourself or your family down: not at all 7. Trouble concentrating on things, such as reading the newspaper or watching television: not at all 8. Moving or speaking so slowly that other people could have noticed. Or the opposite - being so fidgety or restless that you have been moving around a lot more than usual: not at all 9. Thoughts that you would be better off or of hurting yourself in some way: not at all Total score: 0 Depression Screening Interpretation: Negative Depression Screening Done: Yes Source: Developed by Drs. Casper Almeida, Fe Bustamante, Wilman Zamora and colleagues, with an educational ruth from [employer]. Thrive Questionnaire Date Thrive assessed: 01/05/25 I am a: Patient What is your living situation today?: I have a steady place to live Within the past 12 months, did the food you bought not last and you didn't have the money to get more?: Never true Within the past 12 months, did you worry whether your food would run out before you got money to buy more?: Never true Do you have trouble paying for medicines?: No Do you have trouble getting transportation to medical appointments?: No Do you have trouble paying your heating and electricity bill?: No Do you have trouble taking care of your child, family member or friend?: No Do you have trouble with day-to-day activities such as bathing, preparing meals, shopping, managing finances, etc.?: No Are you currently unemployed and looking for a job?: No Are you interested in more education?: No Please select the resources that you would like help with: None Currently or been in a relationship where the following occur: No concerns reported THRIVE Score: 0 AUDIT C Alcohol Use Questionnaire (AUDIT-C) 1. How often do you have a drink containing alcohol?: Never Total Score: 0 KIRAN-7 AMB Questionnaire KIRAN-7 Date KIRAN - 7 assessed: 01/05/25 Feeling nervous, anxious, or on edge: 0 = Not at all Not being able to stop or control worryin = Not at all Worrying too much about different things: 0 = Not at all Trouble relaxin = Not at all Being so restless that it is hard to sit still: 0 = Not at all Becoming easily annoyed or irritable: 0 = Not at all Feeling afraid as if something awful might happen: 0 = Not at all Total KIRAN-7 score (0-4 normal; 5-9 mild; 10-14 moderate; 15-21 severe): 0 Source: Developed by Drs. Casper Almeida, Fe Bustamante, Wilman Zamora and colleagues, with an educational ruth from [employer]. Physical exam (Primary Care) Vital Signs: Last Vital Signs Temp 97.3 F 01/05/25 10:25 Pulse 83 01/05/25 10:25 BP 132/76 01/05/25 10:25 Pulse Ox 97 01/05/25 10:25 Oxygen Delivery Method Room Air 01/05/25 10:25 Care Plan Goal for BP management: Blood pressure is in range. BMI result Body Mass Index 34.6 BMI Assessment/Plan discussion: High Tobacco/Smoking Status: Tobacco use Status Tobacco use date assessed 01/05/25 01/05/25 10:31 Patient Tobacco Use Status Never used Tobacco 01/05/25 10:24 Tobacco use type Cigarette 01/05/25 10:24 e-Cigarette/Vaping Use Never Used 01/05/25 10:24 PHQ-9: PHQ-9 Score PHQ-9: Total score 0 01/05/25 10:31 Depression Screening Interpretation: Negative Thrive Assessment: Date of Thrive Assessment Date Thrive assessed 01/05/25 01/05/25 10:24 Currently or been in a relationship where the following occur: No concerns reported Const General: cooperative and healthy appearing Nutritional Appearance: well nourished Orientation/consciousness: patient oriented x3 Limitations: no limitations HENMT Head: Yes normal to inspection Eyes General: appearance normal, both eyes and all related structures Neck Neck: Yes normal visual inspection Chest Chest palpation & inspection: normal palpation of entire chest wall Resp Effort & Inspection: normal respiratory effort Neuro General: patient oriented x3 Coding Level of Care Code Est Pt Prev Care 40-64y(14477) Diagnoses Annual physical exam Z00.00 Assessment & Plan Assessment & Plan (1) Annual physical exam: Code(s): Z00.00 - Encounter for general adult medical examination without abnormal findin gs Plan: Blood work has been ordered. Patient was encouraged to increase fluid intake, especially electrolytes to alleviate cramping symptoms. I encouraged him not to take any anabolic steroids to build up his muscles.
[2025-01-05 10:25] VITALS: BP 132/76; PULSE 83; TEMP 36.3; O2SAT 97; BMI 34.6
--- OUTSIDE RECORDS SUMMARY | 2025-01-05 10:37 | XMS_ITS ---
Author Name [facility]ISP Organization Unknown Care Team Organization Name Specialty Phone Email Start Date End [facility]
--- OUTSIDE RECORDS SUMMARY | 2025-01-05 10:37 | XMS_ITS | Encounter Summary ---
Author Organization [facility] Address [address] [place] [phone] Phone Care Team Providers Care Area Loss Prevention Manager Name Role Phone Pcp, Unknown Primary Care Provider Unavailabl e Pcp, Unknown Primary Care Provider Unavailabl e Pcp, Not Required Primary Care Provider Unavaila ble Pcp, Unknown Unavailable Unavailable Pcp, Unknown Unavailable Unavailable Encounter Details Date Type Department Care Team (Late st Contact Info) Description 08/22/2021 Procedure Pass OR Admitting Dept - Virtual Department [address] [place] [address] Social History Tobacco Use Types Packs/Day Years Used Date Smoking Tobacco: Never Smokeless Tobacco: Never Alcohol Use Standard Drinks/Week Comments Never 0 (1 standard drink = 0.6 oz pur e alcohol) Sex and Gender Information Value Date Recorded Sex Assigned at Not on file Legal Sex Male 9:38 AM EST Gender Identity Not on file Sexual Orientation Not on file documented as of this encounter Plan of Treatment Not on file documented as of this encounter Visit Diagnoses Not on filedocumented in this encounter Care Teams Area Loss Prevention Manager Relationship Specialty Start Date End Date Pcp, Unknown PCP - General 07/17/20 01/07/22 Pcp, Unknown PCP - General 01/08/22 01/08/22 Pcp, Not Required [address] [place] [id number] PCP - General 01/09/22 Pcp, Unknown 01/08/22 01/08/22 Pcp, Unknown 01/09/22 documented as of this encounter Additional Source Comments The information contained in this document represents components of the legal health record. It is not the complete legal health record.[facility]
== END 2025-01-05 10:54 | disposition home or self-care (01) ==
LOC: HO.HMCH 10:05
PROVIDERS: PCP Internal Medicine; Visit Provider Internal Medicine
DX: Z00.00 Encounter for general adult medical examination without abnormal findings (principal)

== ENCOUNTER → 2025-01-05 10:05 | Outpatient (BNVA) | payer OTHER, SELFPAY | PROVIDERS: PCP Internal Medicine; Visit Provider Internal Medicine | DX: Z00.00 Encounter for general adult medical examination without abnormal findings (principal) | CPT/HCPCS: 99396 ==

== ENCOUNTER 2025-04-29 14:07 | Emergency (ER) | payer OTHER, SELFPAY ==
--- NOTE | ~2025-04-29 | XR_ITS ---
EXAMINATION: XR SHOULDER 2 OR MORE VIEWS LEFT CLINICAL INFORMATION: pain COMPARISON: May 28, 2024 TECHNIQUE: AP external rotation, Grashey, and scapular Y views of the left shoulder. FINDINGS: Normal alignment. No acute fracture. No dislocation. Joint spaces are preserved. No abnormal soft tissue calcification. XR/XR shoulder LT min 2V IMPRESSION: No acute fracture or dislocation. Electronically signed by: Suzanne Daniel MD 04/29/2025 02:58 PM EST
[2025-04-29 14:30] VITALS: BP 148/91; PULSE 68; RESP 16; TEMP 36.8; O2SAT 98; BMI 34.4
--- NOTE | 2025-04-29 14:30 | ED_ITS ---
HPI - General Adult General Chief complaint: Extremity Injury, Upper Stated complaint: Left should pain Time Seen by Provider: 04/29/25 14:37 Source: patient and staff pharmacist hospital (all interactions with this patient were facilitated with an [facility] biblical languages professor (Carola)) Mode of arrival: ambulatory Limitations: language barrier (all interactions with this patient were facilitated with an [facility] biblical languages professor (Carola)) History of Present Illness ED Provider: Lila Gunn PA-C HPI narrative: Patient is a 39 year old assigned male at with a history of left shoulder pain presenting to the emergency department today with acute on chronic left shoulder pain. Patient states that he would like a Toradol injection because he is having a flare of his left shoulder pain after heavy lifting at work and the last time that happened - that helped him the most. Patient denies any other complaints at this time. Relieving factors: none Exacerbating factors: movement Associated symptoms: denies other symptoms Treatments prior to arrival: none Related Data Previous Rx's ?Medication ?Instructions ?Recorded magnesium glycinate 100 mg PO BEDTIME 30 days #3 0 caps 01/13/25 Allergies Allergy/AdvReac Type Severity Reaction Status Date / Time No Known Allergies Allergy Verified 04/29/25 14:38 Review of Systems Constitutional: Constitutional: Reports as per HPI Eyes: Eyes: Reports as per HPI ENT: Reports as per HPI Cardiovascular: Cardiovascular: Reports as per HPI Respiratory: Respiratory: Reports as per HPI Gastrointestinal: Gastrointestinal: Reports as per HPI Genitourinary: Genitourinary: Reports as per HPI Musculoskeletal: Musculoskeletal: Reports as per HPI Integumentary/Breasts: Skin/Breast: Reports as per HPI Neurologic: Reports as per HPI Psychiatric: Psychiatric: Reports as per HPI Endocrine: Endocrine: Reports as per HPI Hematologic/Lymphatic: Hematologic/Lymphatic: Reports as per HPI Allergic/Immunologic: Allergic/Immunologic: Reports as per HPI PMFSH Past Medical History Attestation statement: The following information was validated with the patient. Source: old records reviewed and nursing notes reviewed Surgical History History of ankle surgery S/P tendon repair Family History Family History Mother No problems noted. 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 Cognitive needs: No Hearing needs: No Vision needs: No Physical Exam ED Vital Signs: Vital Signs - 24 hr 04/29/25 14:30 Temperature 98.2 F Pulse Rate 68 Respiratory Rate 16 Blood Pressure 148/91 H Pulse Oximetry 98 Oxygen Delivery Method Room Air BMI result Body Mass Index 34.4 Const General: cooperative, no acute distress, alert and awake Nutritional Appearance: well nourished Orientation/consciousness: patient oriented x3 HENMT Head: Yes normal to inspection and Yes atraumatic Ears: hearing grossly normal bilaterally and external ears normal General nose exam: Normal external nose present, no nasal discharge noted and no epistaxis Face and sinus: Yes normal facial exam, No abrasion and No laceration Mouth: Normal oral and palatal mucosa present, no drooling and no muffled voice Eyes General: appearance normal, both eyes and all related structures Periorbital: periorbital findings normal Eyelids: Yes eyelids normal Conjunctivae: conjunctivae normal Pupils: Equal, round and reactive pupils present EOM: EOMs intact bilaterally Neck Neck: Yes normal visual inspection and Yes full ROM Resp Effort & Inspection: normal respiratory effort and able to speak in complete sentences Neuro General: patient oriented x3, moves all extremities and CN's II-XI intact bilaterally Cranial nerves: Yes Equal, round and reactive pupils present Cognition (Neuro): normal cognition Extrem General: Yes normal to inspection, Yes full ROM and Yes capillary refill normal Psych Appearance: grossly normal Mental Status: mental status grossly normal Affect: normal affect Attitude: cooperative Thought process: Normal thought process present Thought content: Normal thought content present Insight: Good insight present (Psych) Medical Decision Making Medical Decision Making MDM Narrative: Patient is a 39 year old assigned male at with a history of left shoulder pain presenting to the emergency department today with acute on chronic left shoulder pain. Patient's physical exam was as noted in the physical exam portion of this note. Patient's left shoulder x-ray showed no acute process. Patient was given IM Toradol. I explained my physical exam findings as well as all test results to the patient. I answered all questions asked by the patient. I stressed the importance of the patient taking his medication as directed (either prescribed or as the over the counter packaging recommends). I stressed the importance of the patient following up with his primary care provider and the orthopedic team for his acute on chronic left shoulder pain. I stressed the importance of the patient returning to the emergency department immediately if his symptoms were to worsen or if he were to develop any dizziness, shortness of breath, difficulty breathing, chest pain, blurry vision, loss of vision, nausea, vomiting, abdominal pain, fever, chills, back pain, or any other complaints. Patient verbalized agreement and understanding with this treatment plan and discharge. Differential Diagnosis Differential Diagnoses: The differential diagnosis associated with the presentation includes Acute on chronic left shoulder pain Left shoulder pain Admission/Observation Consideration of admission/observation: Escalation of care including admission/observation considered Patient would have been admitted to the hospital had his work up had any findings where hospital admission was appropriate and his clinical presentation warranted hospital admission. Independent Interpretation I performed an independent interpretation of an: Plain X-Ray Interpretation: My interpretation is in agreement with the radiologist's impression of this imaging study as written below. EXAMINATION: XR SHOULDER 2 OR MORE VIEWS LEFT CLINICAL INFORMATION: pain COMPARISON: May 28, 2024 TECHNIQUE: AP external rotation, Grashey, and scapular Y views of the left shoulder. FINDINGS: Normal alignment. No acute fracture. No dislocation. Joint spaces are preserved. No abnormal soft tissue calcification. XR/XR shoulder LT min 2V IMPRESSION: No acute fracture or dislocation. Electronically signed by: Suzanne Daniel MD 04/29/2025 02:58 PM EST Dictated By: Suzanne Daniel MD Signed By: Electronically signed by Suzanne Daniel MD 04/29/25 1458 Radiology Impression Discussion of test interpretation with radiology: I have reviewed the radiologist's reading. Discharge Plan Discharge Clinical Impression: Left shoulder pain Patient Disposition: Home, Self-Care Instructions: Shoulder Pain (ED) Additional Instructions: Your left shoulder x-ray showed no acute eliz process. This is a flare of your known left shoulder issue. You should follow up with the orthopedic team. La radiograf?a de lopez hombro monica no mostr? tommie?n proceso ?saba hilda. Se trata de un brote de lopez conocido problema en el cali anderson. Debe realizar un seguimiento con el equipo de ortopedia. IF you are prescribed home medications and/or you are taking over the counter medications at home - it is very important you continue to do so as prescribed / directed unless told otherwise. SI le recetan medicamentos y/o est? tomando medicamentos de venta guero, es muy importante que contin?e haci?ndolo seg?n lo recetado/indicado a menos que le indiquen lo contrario. Follow up with your primary care provider. Return to the emergency department immediately if your symptoms worsen or if you develop any dizziness, shortness of breath, difficulty breathing, chest pain, blurry vision, loss of vision, nausea, vomiting, abdominal pain, fever, chills, back pain, or any other complaints. Alison?seguimiento?con lopez m?dico de atenci?n primaria. Acuda inmediatamente al servicio de urgencias si lillian s?ntomas empeoran o si presenta falta de aliento, dificultad para respirar, dolor tor?cico, mareos, aturdimiento, dolor de espalda, dolor abdominal, fiebre, escalofr?os o cualquier otro s?ntoma. If you do not have a primary care provider - call any of the below numbers to establish and follow up with a primary care provider. Si no tiene un proveedor de atenci?n primaria, llame a cualquiera de los n?meros que aparecen a continuaci?n para establecer y hacer seguimiento con un proveedor de atenci?n primaria. [facility] ([place]) [phone] [facility] [place], [address] [facility] Primary [facility] ([address] [facility]) [phone], [address] [place], [address] [facility] ([address] [facility]) [phone] [address] [facility], [address] [place], [address] [facility] Primary Care ([place]) [phone] [place] [address], [address] [facility], [address] [facility] Family Medicine [phone] [address] [facility], [address] Please see the information below about our Patient Portal. If you are not yet enrolled in the [facility] Patient Portal, you will receive an enrollment email invitation following your visit to any [facility] setting. You may also self-enroll in the Patient Portal by visiting our website: [email or web address] The following information is required to access the Patient Portal: - Your [facility] Medical Record Number - Your personal home email address (must match what is in your electronic medical record, Registration staff can assist with this) - Name - Date of Capabilities of the Patient Portal: - Message some providers - View upcoming appointments - Access your health summary, medical history, and visit history - View current conditions and allergies - View procedure and lab results - View your medications, including guidelines, side effects, and precautions - Complete pre-appointment questionnaires requested by your provider - Ready summary reports of your office visits and procedures To access the Patient Portal Mobile Ester, follow these directions: - Search [employer] in the Ester Store or [employer] Store - Download the Ester - Search for [facility] - Enter your login/password Portal del paciente Si usted no esta inscrito en el portal de pacientes de [facility], recibira anthony invitacion de inscripcion despues de lopez visita al [facility] o al [facility] via correo electronico. Tambien puede inscribirse voluntariamente en el portal de pacientes visitando nuestra pagina web: [email or web address] La siguiente informacion sera requerida para acceder al portal: - Lopez rama de historia medica de [facility] - Lopez direccion de correo electronico personal - Nombre - Fecha de nacimiento Capacidades: Las siguientes capacidades estan disponibles en el portal de pacientes: - Enviar mensajes a algunos doctores - Verificar proximas citas - Acceso a lopez historial de jin, registro medico e historial de visitas - Jennie las condiciones actuales y alergias jennie procedimientos y resultados del laboratorio - Jennie lillian medicamentos, incluyendo las pautas - Efectos secundarios y precauciones - Completar o llenar formularios / cuestionarios de - Citas solicitadas por lopez doctor - Leer los resumenes de reportes medicos de lillian visitas y procedimientos [place] acceder a la aplicacion movil: - [facility]que [facility] en la Ester Store o [employer] Store - Descargue la aplicacion - [facility] - Ingrese lopez nombre de usuario / Contrasena Prescriptions: No Action magnesium glycinate 100 mg magnesium capsule 100 mg PO BEDTIME 30 Days Qty: 30 0RF Referrals: [facility] Orthopedic Surgeons [Provider Group] Referral Note: Call to establish and follow up with the orthopedic team for your left shoulder pain. Llame para concertar anthony chance con el equipo de ortopedia y realizar un seguimiento de lopez dolor en el hombro monica. Sriram Castellanos MD [Primary Care Provider, Internal Medicine] Print Language: Citizen Of [place]
[2025-04-29 15:03] VITALS: BP 148/91; PULSE 68; RESP 16; TEMP 36.8; O2SAT 98
--- OUTSIDE RECORDS SUMMARY | 2025-04-29 15:07 | XMS_ITS | Encounter Summary ---
Author Organization [facility] Address [address] [place] [address] Phone Care Team Providers Care Sales Development Executive Name Role Phone Pcp, Unknown Primary Care Provider Unavailabl e Pcp, Unknown Primary Care Provider Unavailabl e Pcp, Not Required Primary Care Provider Unavaila ble Pcp, Unknown Unavailable Unavailable Pcp, Unknown Unavailable Unavailable Encounter Details Date Type Department Care Team (Late st Contact Info) Description 01/30/2021 Procedure Pass [facility], Ct Scan - [address] [address] Social History Tobacco Use Types Packs/Day Years Used Date Smoking Tobacco: Never Smokeless Tobacco: Never Alcohol Use Standard Drinks/Week Comments Not Currently 0 (1 standard drink = 0.6 oz [...] on filedocumented in this encounter Care Teams Sales Development Executive Relationship Specialty Start Date End Date Pcp, Unknown PCP - General 07/17/20 01/07/22 Pcp, Unknown PCP - General 01/08/22 01/08/22 Pcp, Not Required [address] [place] [address] PCP - General 01/09/22 Pcp, Unknown 01/08/22 01/08/22 Pcp, Unknown 01/09/22 documented as of this encounter Additional Source Comments The information contained in this document represents components of the legal health record. It is not the complete legal health record.[facility]
--- OUTSIDE RECORDS SUMMARY | 2025-04-29 15:07 | XMS_ITS | Encounter Summary ---
Author Organization [facility] Address [address] [place] [phone] Phone Care Team Providers Care Butcher Meat Name Role Phone Pcp, Unknown Primary Care Provider Unavailabl e Pcp, Unknown Primary Care Provider Unavailabl e Pcp, Not Required Primary Care Provider Unavaila ble Pcp, Unknown Unavailable Unavailable Pcp, Unknown Unavailable Unavailable Encounter Details Date Type Department Care Team (Late st Contact Info) Description 08/22/2021 Procedure Pass [place] Admitting Dept - Virtual Department [address] [place] [address] Social History Tobacco Use Types [...] on filedocumented in this encounter Care Teams Butcher Meat Relationship Specialty Start Date End Date Pcp, Unknown PCP - General 07/17/20 01/07/22 Pcp, Unknown PCP - General 01/08/22 01/08/22 Pcp, Not Required [address] [place] [address] PCP - General 01/09/22 Pcp, Unknown 01/08/22 01/08/22 Pcp, Unknown 01/09/22 documented as of this encounter Additional Source Comments The information contained in this document represents components of the legal health record. It is not the complete legal health record.[facility]
--- OUTSIDE RECORDS SUMMARY | 2025-04-29 15:07 | XMS_ITS | Encounter Summary ---
Author Organization [facility] Address [address] [place] [phone] Phone Care Team Providers Care Asset Card Clerk Name Role Phone Pcp, Unknown Primary Care Provider Unavailabl e Pcp, Unknown Primary Care Provider Unavailabl e Pcp, Not Required Primary Care Provider Unavaila ble Pcp, Unknown Unavailable Unavailable Pcp, Unknown Unavailable Unavailable Encounter Details Date Type Department Care Team (Late st Contact Info) Description 07/19/2020 Ancillary Orders [facility],Outside Imaging [address] [place], [place] [id number] System, Provider Not In, [place] [address] Social History Tobacco Use Types Packs/Day Years [...] on file documented as of this encounter Results * XR Lower Extremity Outside (No Interpretation) (07/15/2020 12:00 AM EST) Narrative SYSTEMGENERATED, DOCUMENTATION - 07/19/2020 9:30 AM EST This study is for PACS storage only and not for interpretation. us Provider Not In System PhD IMG OUTSIDE IMAGING W /OUT INTERPRETATION Final Result documented in this encounter Visit Diagnoses Not on filedocumented in this encounter Care Teams Asset Card Clerk Relationship Specialty Start Date End Date Pcp, Unknown PCP - General 07/17/20 01/07/22 Pcp, Unknown PCP - General 01/08/22 01/08/22 Pcp, Not Required [address] [place] [address] PCP - General 01/09/22 Pcp, Unknown 01/08/22 01/08/22 Pcp, Unknown 01/09/22 documented as of this encounter Additional Source Comments The information contained in this document represents components of the legal health record. It is not the complete legal health record.[facility]
--- OUTSIDE RECORDS SUMMARY | 2025-04-29 15:07 | XMS_ITS | Encounter Summary ---
Author Organization [facility] Address [address] [place] [phone] Phone Care Team Providers Care Director Drug Safety Name Role Phone Pcp, Unknown Primary Care Provider Unavailabl e Pcp, Unknown Primary Care Provider Unavailabl e Pcp, Not Required Primary Care Provider Unavaila ble Pcp, Unknown Unavailable Unavailable Pcp, Unknown Unavailable Unavailable Encounter Details Date Type Department Care Team (Late st Contact Info) Description 07/26/2020 Procedure Pass [place] Admitting Dept - Virtual Department [address] [place] [address] Social History Tobacco Use Types [...] on filedocumented in this encounter Care Teams Director Drug Safety Relationship Specialty Start Date End Date Pcp, Unknown PCP - General 07/17/20 01/07/22 Pcp, Unknown PCP - General 01/08/22 01/08/22 Pcp, Not Required [address] [place] [address] PCP - General 01/09/22 Pcp, Unknown 01/08/22 01/08/22 Pcp, Unknown 8/10/22 documented as of this encounter Additional Source Comments The information contained in this document represents components of the legal health record. It is not the complete legal health record.[facility]
--- OUTSIDE RECORDS SUMMARY | 2025-04-29 15:07 | XMS_ITS | Encounter Summary ---
Author Organization [facility] Address [address] [place] [phone] Phone Care Team Providers Care Cocoa Mill Operator Name Role Phone Pcp, Unknown Primary Care Provider Unavailabl e Pcp, Unknown Primary Care Provider Unavailabl e Pcp, Not Required Primary Care Provider Unavaila ble Pcp, Unknown Unavailable Unavailable Pcp, Unknown Unavailable Unavailable Encounter Details Date Type Department Care Team (Late st Contact Info) Description 05/10/2021 Procedure Pass [facility], [address] [address] Social History Tobacco Use Types Packs/Day Years [...] on filedocumented in this encounter Care Teams Cocoa Mill Operator Relationship Specialty Start Date End Date Pcp, Unknown PCP - General 07/17/20 01/07/22 Pcp, Unknown PCP - General 01/08/22 01/08/22 Pcp, Not Required [address] [place] [address] PCP - General 01/09/22 Pcp, Unknown 01/08/22 01/08/22 Pcp, Unknown 01/09/22 documented as of this encounter Additional Source Comments The information contained in this document represents components of the legal health record. It is not the complete legal health record.[facility]
--- OUTSIDE RECORDS SUMMARY | 2025-04-29 15:07 | XMS_ITS | Clinical Summary ---
Author Organization [facility] Address [address] [place] [id number] Phone Care Team Providers Care Export Packer Name Role Phone Pcp, Not Required Primary Care Provider Unavaila ble Pcp, Unknown Unavailable Unavailable Allergies No known active allergies Medications oxyCODONE 10 mg Tab Take 1 tablet (10 mg total) by mouth every 4 (four) hours as needed for moderate pain. Partial fill ok 16 tablet 08/22/2021 Active Active Problems Problem Noted Date Diagnosed Date Chronic pain of left ankle 10/04/2021 Ankle syndesmosis disruption, left, initial enco unter Sprain of deltoid ligament of left ankle Traumatic arthritis of left ankle Painful orthopaedic hardware Social History Tobacco Use Types Packs/Day Years Used Date Smoking Tobacco: Never Smokeless Tobacco: Never Alcohol Use Standard Drinks/Week Comments Never 0 (1 standard drink = 0.6 oz pur e alcohol) Education Answer Date Recorded Are you interested in more education? Not on nicolle e 09/27/2022 Are you concerned about learning? Not on file 09/27/2022 No 09/27/2022 No 09/27/2022 Digital Access Answer Date Recorded No 10/26/2022 No 10/26/2022 No 10/26/2022 Reliable internet access at home? Not on file 10/26/2022 Device with a working camera? Not on file Sex and Gender Information Value Date Recorded Sex Assigned at Not on file Legal Sex Male 9:38 AM EST Gender Identity Not on file Sexual Orientation Not on file Last Filed Vital Signs Vital Sign Reading Time Taken Comments Blood Pressure 137/78 08/22/2021 11:45 AM EDT Pulse 89 08/22/2021 11:45 AM EDT Temperature 36.2 C (97.2 F) 08/22/2021 10:57 AM EDT Respiratory Rate 15 08/22/2021 11:45 AM EDT Oxygen Saturation 97% 08/22/2021 11:45 AM EDT Inhaled Oxygen Concentration - - Weight 125.6 kg (277 lb) 08/22/2021 7:00 AM EDT Height 188 cm (6' 2 ) 08/22/2021 7:00 AM EDT Body Mass Index 35.56 08/22/2021 7:00 AM EDT Plan of Treatment Health Maintenance Due Date Last Done Comments Adult Td,Tdap Booster 1983 LIPID PANEL 1983 DEPRESSION SCREENING 1995 HEPATITIS C SCREENING 2001 HIV ONE-TIME SCREENING (18-6 5 YEARS) 2001 INFLUENZA VACCINE (#1) 2024 COVID-19 VACCINE (3 2024-2 6 season) 2025 10/28/2020, 10/07/2020 SMOKING STATUS SCREENING (On ce After 26 Yrs) Completed 12/05/2021 HEPATITIS A VACCINES Aged Out No long er eligible based on patient's age to complete this topic HIB VACCINES Aged Out No longer eligi ble based on patient's age to complete this topic MENINGOCOCCAL VACCINES (ACWY) Aged Out No longer eligible based on patient's age to complete this topic MENINGOCOCCAL VACCINES (B) Aged Out N o longer eligible based on patient's age to complete this topic PNEUMOCOCCAL VACCINES (0-49 years) Aged Out No longer eligible b ased on patient's age to complete this topic Medical Devices Implanted Type Area Senior Software Engineering Manager Device Identifier Shelf Expiration Date Model / Serial / Lot Round Top Knotless Syndesmosis Tightrope Xp Lf Titanium Sterile - [id number] Implanted:Qty: 1 on 07/26/2020 by Drake Mendez MD at [facility] [employer] 01/30/2025 [id number] / / [id number] Round Top Suture Size 0 Needleos2 [id number] Arthroscopy Quick Double Arm Mini - [id number] Implanted:Qty: 1 on 07/26/2020 by Drake Mendez MD at [facility] [employer] 08/30/2024 [id number] / / [id number] Round Top Suture Size 0 Needleos2 [id number] Arthroscopy Quick Double Arm Mini - [id number] Implanted:Qty: 1 on 07/26/2020 by Drake Mendez MD at [facility] Left: Ankle [employer] 01/30/2025 [id number] / / [id number] Osteomed 2-Hole Plate Implanted:Qty: 1 on 07/26/2020 by Drake Mendez MD at [facility] Left: Ankle [employer] 07/26/2020 [id number] / / Osteomed 3.5mm X 55mm Screw Implanted:Qty: 1 on 07/26/2020 by Drake Mendez MD at [facility] Left: Ankle OSTEOMED 07/26/2020 [id number] / / Insurance AIM INSURANCE [address] [place] [id number] Care Teams Export Packer Relationship Specialty Start Date End Date Pcp, Not Required [address] [place] [address] PCP - General 01/09/22 Pcp, Unknown 01/09/22 Additional Source Comments The information contained in this document represents components of the legal health record. It is not the complete legal health record.[facility]
== END 2025-04-29 15:05 | disposition home or self-care (01) ==
LOC: HO.ED 15:04
PROVIDERS: Emergency Provider Emergency Medicine; PCP Internal Medicine
DX: M25.512 Pain in left shoulder (principal)
CPT/HCPCS: 73030; 96372; 99283; 99284; J1885

== ENCOUNTER → 2025-04-29 14:37 | Outpatient (BNV) | payer OTHER, SELFPAY | PROVIDERS: Emergency Provider Emergency Medicine; PCP Internal Medicine; Visit Provider Radiology Body Imaging | DX: M25.512 Pain in left shoulder (principal) | CPT/HCPCS: 73030 ==